=== PATIENT | male | born 1995 | race Caucasian/White ===

== ENCOUNTER 2016-12-17 05:37 | Emergency (ER) | payer SELFPAY ==
[~2016-12-17] VITALS: Ht 167.6 cm; Wt 69.1 kg
[2016-12-17 05:39] VITALS: BP 141/82; PULSE 74; RESP 16; O2SAT 100
[2016-12-17] MEDS ORDERED: Ketorolac 30 mg/mL 2 mL Inj IM ONE (06:45)
--- NOTE | 2016-12-17 07:12 | ED.REPORT ---
HPI-Back Pain Under 40 Date of Service Dec 17, 2016 ED Provider: Kera English MD 21yoM with history of childhood migraine headaches presents with right side lower back pain for 1 week. The patient says that he was at work but not actively working when he noticed the back pain. It is described as lower left sided closer to his hip and radiates across his back to the right. It is currently a 5 out of 10 but at its worst it is a 10 out of 10. It is constant in nature but with intermittent bursts which feel like a needle in his back. The pain is made worse with twisting movement, walking, and lying flat on his back. The patient has noticed no numbness or tingling in his legs and no weakness or trouble with coordination. The patient denies trouble with urination or stooling. He has tried Tylenol and cranberry pills with water and no improvement in the pain. Nursing Notes Stated Complaint: BACK PAIN Chief Complaint: Back Pain or Injury Nursing Notes Reviewed: Yes Allergies: Coded Allergies: No Known Allergies (Unverified , 12/17/16) Scheduled Prednisone (PredniSONE) 20 Mg Tablet 40 MG PO DAILY Scheduled PRN Naproxen (Naproxen) 500 Mg Tab 500 MG PO BID PRN PRN For Pain General Time Seen by MD: 06:30 Chief Complaint Back pain Hx Obtained From: Patient Arrived By: Walk-in Sudden in Onset?: Yes Symptom Duration: Since onset Caused by: Spontaneous/no mechanism Location: : Spinal sacroiliac area Quality: Painful, Stabbing Severity: Current: Pain level 5 out of 10 Severity: Maximum: Pain level 10 out of 10 Recent Healthcare: No recent doctor visit Similar Sx Previous: No Past Medical History Past Medical History childhood migraines resolved Smoking History Never Smoker Social History Alcohol Use: Denies alcohol use Drug Use: THC Other Social History: Good social support, Local resident Ambulatory Status Independent Review of Systems Basic Review of Systems Eyes: Vision NL, No discharge ENT: Hearing NL, No pain, No nasal congestion, No pharyngeal pain Hematologic: No bleeding, No bruising Endocrine: No cold intolerance, No heat intolerance, No weight gain, No weight loss Skin: No bruising, No rash, No itch Allergy / Immune: No allergy Psychiatric: Normal thought content Constitutional: Denies: Chills, Fever Respiratory: Denies: Dyspnea on exertion, Non-productive cough, Pleuritic pain Cardiovascular: Denies: Chest pain, Dyspnea on exertion, Edema GI: Denies: Abdominal pain, Constipation, Diarrhea, Melena, Nausea, Vomiting Male: Denies Dysuria, Denies Hematuria Musculoskeletal: Denies: Extremity pain, Extremity swelling Neurologic: Denies: Dizziness, Focal weakness, Headache, Lightheaded, Numbness , Problem walking Complete sys rev & neg: except as marked. Physical Exam Initial Vital Signs Vital Signs (First) Date Time Temp Pulse Resp B/P Pulse Ox O2 Delivery O2 Flow Rate FiO2 12/17/16 05:39 36.4 74 16 141/82 100 Room Air Initial VS: Reviewed Head / Eyes: Atraumatic, Normocephalic, PERRL ENT: Mucous membranes moist, Conjunctiva normal, No scleral icterus Neck: Supple, Non-tender, Full range of motion Respiratory: Breath sounds normal, Clear to auscultation, No respiratory distress Cardiovascular: Heart sounds normal, Intact distal pulses Abdomen / GI: Soft, Non-tender, No guarding, No rebound, No distention Lymphatic: No lymphadenopathy Extremities: Vascular intact, Neuro intact, No swelling, No tenderness Skin: Warm, Dry, No cyanosis Psychiatric: Mood/affect normal, Behavior normal, Normal thought content General/Constitutional: Awake, Alert, No acute distress, Well appearing Back: Atraumatic, Inspection NL, Full range of motion, No midline vertebral tend, No muscle spasm, Straight leg raise neg Flank / Spine / Paraspinal: Positive: SI joint tender L, Negative: Coccyx tender, Erythema present, Lumbar spine tender..., Sacral spine tender..., Swelling present, Thoracic spine tender... Muscle Spasm / ROM: Positive: ROM decrease - mod (patient lacks flexibility for age) Neurologic: Oriented X3, Speech NL, No motor deficits, No sensory deficits, Reflexes equal bilat, Cerebellar NL, Gait NL Neck: Atraumatic, Full range of motion, No swelling, No midline vertebral tend Respiratory / Chest: Breath sounds NL, Breath sounds = bilat, No respiratory distress, No rales, No rhonchi, No wheezing Cardiovascular: Heart rate NL, Regular rhythm, Heart sounds NL, Peripheral circulation NL Lower Extremity / Pelvis / MS: Inspection NL, No swelling, Non-tender, No erythema, No deformity, Neurologic intact, Vascular intact, No edema Interpretation & Diagnostics Lab Results Interpretation Result Diagram: 12/17/16 0758 12/17/16 0758 Test 12/17/16 07:10 12/17/16 07:58 Urine Color Straw (YELLOW) Urine Appearance Hazy (CLEAR,HAZY) Urine pH 6.0 (5.0-8.0) Urine Specific [place] 1.025 (1.003-1.035) Urine Protein Negativemg/dL (NEG,TRACE) Urine Glucose (UA) Negativemg/dL (NEGATIVE) Urine Ketones Negativemg/dL (NEGATIVE) Urine Occult Blood Moderate (NEGATIVE) Urine Nitrite Negative (NEGATIVE) Urine Bilirubin Negative (NEGATIVE) Urine Urobilinogen Normalmg/dL (NORMAL) Urine Leukocyte Esterase Negative (NEGATIVE) Urine RBC 3-10/hpf (0-2) Urine WBC 0-5/hpf (0-5) Urine Epithelial Cells Occasional/hpf (NONE-MOD) Urine Crystals None seen (NONE SEEN) Urine Bacteria None/hpf (NONE-FEW) Urine Hyaline Casts None/lpf (NONE) Urine Granular Casts None seen (NONE SEEN) Urine Waxy Casts None seen (NONE SEEN) Urine Red Blood Cell Casts None seen (NONE SEEN) Urine White Blood Cell Casts None seen (NONE SEEN) Urine Mucus None seen (None Seen) Urine Trichomonas None seen (NONE SEEN) Urine Yeast None (NONE SEEN) Urinalysis Comment None Urine Culture Reflexed Not indicated Urine Random Creatinine 140mg/dL (24-392) Urine Random Total Protein 5mg/dL (0-15) Urine Protein/Creatinine Ratio 0.04 Hold Urine Received (Received) White Blood Count 5.9th/mm3 (3.8-10.1) Red Blood Count 4.94mil/mm3 (4.40-5.80) Hemoglobin 15.3g/dL (13.8-17.2) Hematocrit 44.2% (41.0-50.0) Mean Corpuscular Volume 89.5fL (81-100) Mean Corpuscular Hemoglobin 31.0pg (27.0-35.0) Mean Corpuscular Hemoglobin Concent 34.6% (32.0-37.0) Red Cell Distribution Width 12.4% (12.3-15.4) Platelet Count 237bil/L (150-400) Neutrophils (%) (Auto) 65.2% (40-74) Lymphocytes (%) (Auto) 27.9% (14-46) Monocytes (%) (Auto) 6.1% (4-12) Eosinophils (%) (Auto) 0.3% (0-5) Basophils (%) (Auto) 0.3% (0-3) Sodium Level 139mEq/L (134-144) Potassium Level 4.2mEq/L (3.5-5.2) Chloride Level 103mEq/L (97-108) Carbon Dioxide Level 22mmol/L (18-29) Blood Urea Nitrogen 17mg/dL (6-20) Creatinine 0.90mg/dL (0.76-1.27) Estimat Glomerular Filtration Rate 111mL/min (>59) Glucose Level 98mg/dL (60-99) Calcium Level 9.4mg/dL (8.5-10.1) Total Bilirubin 0.7mg/dL (0.0-1.2) Aspartate Amino Transf (AST/SGOT) 18U/L (0-50) Alanine Aminotransferase (ALT/SGPT) 20U/L (0-44) Alkaline Phosphatase 67U/L (25-150) Total Protein 7.8g/dL (6.4-8.4) Albumin 4.7g/dL (3.4-5.0) Re-Eval/Medical Decision Med Decision/Clinical Course 21yoM with one week of lower back pain without inciting event. Negative straight leg raise, negative piriformis check for cause of sciatica issue. No midline tenderness. Pain at SI joint with gait testing and twisting of pelvis for ROM. Physical exam is consistent with SI joint dysfunction. Urine dip analysis in shows blood, can not confirm if RBC v myoglobin will sent urine for formal culture. Patient reports a history of cough sore throat runny nose 2 weeks prior consider post strep glomerulonephritis and IgA nephropathy there is no protein which makes IgA less likely but still possible. The patient had a UA in 2005 with blood in his urine making IgA Nephropathy again possible. CBC shows no anemia. Will begin 5 day prednisone therapy burst which should no affect IGA nephropathy given standard therapy is prednisone 1mg/kg for two months and then taper therafter. Prednisone will treat sacroilitis inflammation , as well as Naproxen given normal kidney function otherwise with normal protein :creatinine ratio. Patient to follow up with PCP in 1 weeks time to check pain and nephritic syndrome. Counseled Regarding: Diagnosis, Need for follow-up, When/why to return to ED Discharge & Departure Impression: Primary Impression: Sacro-iliac pain Additional Impressions: Sacroiliac joint dysfunction of left side Sacroiliitis Hematuria Ruled Out: UTI (urinary tract infection), Pyelonephritis, Renal colic Disposition: Home All VS Reviewed: Yes Condition: Stable Patient Instructions: Sacroiliitis (ED) Additional Instructions: During you visit to [facility] Emergency Department we obtained urine for analysis. Your urine and your physical exam showed no acute life threatening processes or abnormalities. Your vital signs were stable and safe for discharge. We will send you home with - 5 day course of Prednisone for inflammation - Naproxen Pain medications Please do not take these medications on an empty stomach as this could cause GI upset. Do not hesitate to call emergency services or your primary care physician if you experience any of the following. - High unrelenting fevers. - Uncontrolled vomiting. - Trouble with unilateral weakness or trouble walking - dizziness or loss of consciousness. - Chest pain or severe shortness of breath. - noticeably red urine Please follow up with your PCP in 1 week for your pain as well as for the blood in your urine. Referrals: [facility] (PCP) Attending Statement pt seen and examined. area of tenderness, exam and history all consistent with SI/back pain. incidental hematuria noted. Noted also in 2006. Would benefit from outpt workup for hematuria. At this time, urine is cultured, labs are reassuring. doubt kidney stone as cause of pain today agree with documentation as above copies to: [facility] Vargas Lepe DO Dec 17, 2016 07:11 Kera English MD Dec 17, 2016 08:58
[2016-12-17] MEDS ORDERED: PRE20 PO (07:15)
[2016-12-17] MEDS ORDERED: NPR500T PO (07:15)
[2016-12-17 07:54] LABS: APPEARANCE,URINE HAZY (CLEAR,HAZY); COLOR,URINE STRAW (YELLOW)
[2016-12-17 07:55] LABS: OCCULT BLOOD,URINE MODERATE (NEGATIVE); UROBILINOGEN,URINE NORMAL (NORMAL)
[2016-12-17 08:06] LABS: BASOPHILS % (AUTO) 0.3 % (0-3); EOSINOPHILS % (AUTO) 0.3 % (0-5); MONOCYTES % (AUTO) 6.1 % (4-12); Mean Corpuscular Volume 89.5 fL (81-100); NEUTROPHILS % (AUTO) 65.2 % (40-74); Platelet Count 237 bil/L (150-400)
[2016-12-17 09:25] VITALS: BP 124/81; PULSE 60; RESP 16; O2SAT 98
== END 2016-12-17 09:26 | disposition home or self-care (01) ==
LOC: SED 05:37
DX: M53.3 Sacrococcygeal disorders, not elsewhere classified (principal); M46.1 Sacroiliitis, not elsewhere classified; R31.9 Hematuria, unspecified; F12.10 Cannabis abuse, uncomplicated; Z86.69 Personal history of other diseases of the nervous system and sense organs
CPT/HCPCS: 36415; 80053; 81000; 82043; 82570; 84156; 85025; 96372; 99284; J1885

== ENCOUNTER 2017-07-08 19:08 | Emergency (ER) | payer SELFPAY ==
[~2017-07-08] VITALS: Ht 167.6 cm; Wt 81.8 kg
[~2017-07-08 19:08] MED LIST: NPR500T PO; PRE20 PO
[2017-07-08 19:16] VITALS: BP 122/78; PULSE 100; RESP 18; O2SAT 99
--- NOTE | 2017-07-08 20:26 | ED.REPORT ---
HPI-Rash / Abscess Date of Service Jul 08, 2017 ED Provider: Chang Keys DO The patient is a 22 year old male presenting to the ED complaining of swelling to the left side of his face onset 3 days ago. He denies fever, chills, nausea, vomiting, and shortness of breath. Nursing Notes Stated Complaint: ABSCESS Chief Complaint: Skin Rash/Abscess Nursing Notes Reviewed: Yes Allergies: Coded Allergies: No Known Allergies (Unverified , 12/17/16) Scheduled Prednisone (PredniSONE) 20 Mg Tablet 40 MG PO DAILY Scheduled PRN Naproxen (Naproxen) 500 Mg Tab 500 MG PO BID PRN PRN For Pain General Time Seen by MD: 20:26 Chief Complaint Abscess Hx Obtained From: Patient Arrived By: Walk-in Onset Occurred: 3 days ago Symptom Duration: Since onset Location: : Head/face Quality: Painful Severity: Current: Moderate Similar Sx Previous: No Past Medical History Past Medical History childhood migraines resolved Past Surgical History denies Smoking History Never Smoker Social History Alcohol Use: Denies alcohol use Drug Use: THC Other Social History: Good social support, Local resident Ambulatory Status Independent Review of Systems Constitutional: Denies: Chills, Fever Respiratory: Denies: Shortness of breath GI: Denies: Nausea, Vomiting Skin: Reports Swelling (left side of face) Complete sys rev & neg: except as marked. Physical Exam Initial Vital Signs Initial VS: Reviewed General/Constitutional: Awake, Alert Skin: Warm, Dry Head / Eyes: Atraumatic, Normocephalic 3cm x 3cm fluctuant nodule anterior to the left ear Respiratory / Chest: Atraumatic, No respiratory distress Upper Extremity / MS: Atraumatic, Full range of motion Procedures Incision & Drainage Abscess I & D Abscess: Cyst fragment removed from site Time: 22:19 Procedure Performed by: ED physician Consent / Setup / Site Prep: Consent from patient, Time-out performed, Hand hygiene observed, Stand sterile technique, Sterile drapes applied Location of Abscess: Anterior to the left ear Skin Preparation Agent: Shurclens Local Anesthesia: Lidocaine 1% Incised Abscess with Scalpel: #11 Pus Drained: Small, Purulent discharge Irrigation: Yes, Copious Post-Procedure / Complications: Packing placed (iodoform gauze 1/4"), Culture obtained, Gram stain ordered, Dressing applied, No complications, Condition improved, Tolerated procedure well, Patient stable Re-Eval/Medical Decision Med Decision/Clinical Course Patient's presentation today is most consistent with an inflamed sebaceous cyst that ruptured, especially since there were cyst fragments removed in the procedure.. There is some concern for infection, however there is no surrounding evidence of cellulitis and the patient has been afebrile. Culture was obtained. I did not treat him empirically with antibiotics as the wound has been drained and packed. Patient understands the need for follow-up in 2-3 days. Re-Evaluation/Progress : Time of Eval: 22:19 Re-Evaluation/Progress Note: Patient rechecked. Incision and drainage procedure performed. Counseled Regarding: Diagnosis, Need for follow-up, When/why to return to ED Discharge & Departure Impression: Primary Impression: Abscess Disposition: Home Discharge Condition All VS Reviewed: Yes Condition: Improved Patient Instructions: Abscess (ED) Additional Instructions: Thank you for entrusting us with your care today. We drained an abscess on the left side of your face today. Have the wound rechecked in 2-3 days to have the packing removed. Take ibuprofen for the pain If after a couple of weeks you feel a hard ball where the abscess was, you will need to get that removed. It seems to me that there is was an infected/ inflamed cyst which are sometimes known to recur. Follow up at [facility] at the end of the week. Return to the emergency department for any swelling, redness, fever, chills, nausea, vomiting, any signs of infection, or any new or concerning symptoms to you. Referrals: [facility] (PCP) Santana Attestation Portions of this note were transcribed by Debbie Becker and Ricco Rabago. I, Dr. Keys personally performed the history, physical exam and medical decision -making; I reviewed and confirmed the accuracy of the information in the transcribed note. Signed by: Santana Colon, 07/08/2017 copies to: [facility] Dorian Keys DO Jul 08, 2017 20:26 Jul 08, 2017 21:30 Mali Becker Jul 08, 2017 22:35
[2017-07-08] MEDS ORDERED: Lidocaine 1%-Epi 1:100,000 20 mL Inj ONE (22:06)
[2017-07-08 22:46] VITALS: BP 120/71; PULSE 71; RESP 16; O2SAT 96
== END 2017-07-08 22:45 | disposition home or self-care (01) ==
LOC: SED 19:08
DX: H60.02 Abscess of left external ear (principal)